=== PATIENT | male | born 1980 | race Caucasian/White ===

== ENCOUNTER 2022-03-10 10:08 | Day surgery (SDC) | payer BC ==
[2022-03-10] MEDS ORDERED: LACTATED RINGERS 1,000 ML IV ONE ×2 (10:44→12:09)
--- NOTE | 2022-03-10 11:19 | ANESTHESIA ---
Pre-Anesthesia VS, & Labs - Diagnosis FAMILY HX COLON CA - Procedure COLONOSCOPY Vital Signs: Temp Pulse Resp BP Pulse Ox O2 Flow Rate 36 C L 82 16 155/108 H 98 03/10/22 10:20 03/10/22 10:20 03/10/22 10:20 03/10/22 10:20 03/10/22 10:20 Height: 6 ft 5 in Weight (kg): 105.3 kg Body Mass Index: 27.5 BMI Classification: Overweight - NPO Last Fluid Intake: am prep - Lab Results Lab results reviewed: Yes Home Medications and Allergies Home Medications: Ambulatory Orders No Known Home Medications 03/09/22 No Known Home Medications 03/09/22 Allergies/Adverse Reactions: Allergies Allergy/AdvReac Type Severity Reaction Status Date / Time No Known Drug Allergies Allergy Verified 03/09/22 12:39 Anes History & Medical History - Anesthetic History Anesthesia Complications: reports: No previous complications Family history of Anesthesia Complications: Denies Family history of Malignant Hyperthermia: Denies - Medical History Cardiovascular: reports: None Pulmonary: reports: None Gastrointestinal: reports: None Urinary: reports: None Musculoskeletal: reports: None Endocrine/Autoimmune: reports: None Skin: reports: None History of Cancer?: No Exam General: Alert, Oriented x3, Cooperative Dental: WNL Mouth Openin Fingerbreadth Neck Mobility: Normal Mallampati classification: II Thyromental Distance: 4-6 cm Respiratory: Lungs clear, Normal breath sounds, No respiratory distress Cardiovascular: Regular rate Plan Anesthesia Type: Total IV Consent for Procedure(s) Verified and Reviewed: Yes Code Status: Attempt Resuscitation ASA classification: 1-Healthy patient Is this case an emergency?: No
[2022-03-10] MEDS ORDERED: PROPOFOL 500 MG/50 ML 500 MG/50 ML VIAL ONE (11:24)
[2022-03-10] MEDS ORDERED: MIDAZOLAM 2 MG/2 ML VIAL ONE (11:25)
[2022-03-10] MEDS ORDERED: PROPOFOL 200 MG/20 ML VIAL IVP ONE (11:48)
[2022-03-10] MEDS ORDERED: GLYCOPYRROLATE 1 MG/5 ML VIAL ONE (11:51)
[2022-03-10] MEDS ORDERED: SIMETHICONE 40 MG/0.6 ML 30 ML BOTTLE PO ONE (11:55)
[2022-03-10 12:56] VITALS: BP 126/94
--- NOTE | 2022-03-10 17:52 | ANESTHESIA POST OP EVALUATION ---
Anesthesia Post Eval - Post Anesthesia Eval Vitals: Last Vital Signs Temp 36.1 C L 03/10/22 12:34 Pulse 62 03/10/22 12:34 Resp 16 03/10/22 12:34 BP 126/94 H 03/10/22 12:34 Pulse Ox 100 03/10/22 12:34 O2 Flow Rate CV Function Including HR & BP: Stable Pain Control: Satisfactory Nausea & Vomiting: Negative Mental Status: Baseline Respiratory Status: Airway Patent Hydration Status: Satisfactory Anesthesia Complications: None
== END 2022-03-10 10:09 | disposition home or self-care (01) ==
LOC: SDS 10:08
PROVIDERS: ATTEND Surgery
PROC: 0DBL8ZX Excision of Transverse Colon, Via Natural or Artificial Opening Endoscopic, Diagnostic (ICD-10-PCS; 2022-03-10)
PROC: 0DBN8ZX Excision of Sigmoid Colon, Via Natural or Artificial Opening Endoscopic, Diagnostic (ICD-10-PCS; 2022-03-10)
PROC: 0DBH8ZX Excision of Cecum, Via Natural or Artificial Opening Endoscopic, Diagnostic (ICD-10-PCS; principal; 2022-03-10 11:30)
DX: Z12.11 Encounter for screening for malignant neoplasm of colon (principal); D12.0 Benign neoplasm of cecum; D12.3 Benign neoplasm of transverse colon; D12.5 Benign neoplasm of sigmoid colon; Z80.0 Family history of malignant neoplasm of digestive organs
CPT/HCPCS: 45380; 45385; A9270; J7120